=== PATIENT | female | born 2000 | race Two or more races ===

== ENCOUNTER 2024-10-01 10:21 | Emergency (ER) | payer OTHER, SELFPAY ==
[2024-10-01 10:28] VITALS: BP 140/91; PULSE 104; TEMP 36.6; O2SAT 100; BMI 21.5
--- NOTE | 2024-10-01 10:44 | ECG_ITS ---
The [facility] Test Date: 2024-10-01 Pat Name: NATALIA DIEGO Department: Room: - Gender: Female Baggage Screener: : 2000 Requested By: [id number] Order Number: [id number] Reading MD: SHIVANI ORELLANA Measurements Intervals [place] Rate: 94 P: 43 OH: 150 QRS: 51 QRSD: 82 T: 61 QT: 336 QTc: 388 Interpretive Statements 1100 Sinus rhythm 9110 normal ECG Compared to ECG 02/11/2020 07:46:28 No significant changes Electronically Signed On 10-07-2024 18:26:45 EST by SHIVANI ORELLANA
--- NOTE | 2024-10-01 10:44 | XR_ITS ---
The [address] [address] Patient Name: NATALIA DIEGO MRN: [id number] date: 2000 Sex: F Assigned Patient Location: ER Current Patient Location: ER Accession/Order Number: [id number] Exam Date: 10/01/2024 10:50 Report Date: 10/01/2024 11:06 At the request of: WILLIE NAILS Procedure: XR chest 1V EXAMINATION: XR chest 1V HISTORY: CP COMPARISON: 08/27/2016 TECHNIQUE: AP portable FINDINGS: LUNGS: No significant pulmonary parenchymal abnormalities. VASCULATURE: No increased pulmonary vasculature. PLEURA: No pneumothorax, effusion, or pleural thickening. CARDIAC: No cardiomegaly or cardiac silhouette abnormality. MEDIASTINUM: No visible mass or adenopathy. BONES: No fracture or visible bone lesion. OTHER: Negative. XR/XR chest 1V IMPRESSION: No acute cardiopulmonary process Electronically authenticated by: BLUE BUCIO Date: 10/01/2024 11:06
--- NOTE | 2024-10-01 10:44 | ED_ITS ---
HPI - Chest Pain General Chief Complaint: Chest Pain Stated Complaint: CHEST PAINS Time Seen by Provider: 10/01/24 10:40 Source: patient Mode of arrival: walk-in Limitations: no limitations History of Present Illness HPI narrative: 24-year-old female presents for chest pain. It started about 50 minutes ago while she was driving her car. Nothing stressful occurred and there was no injury. It is in the middle and left part of her chest and it has been continuous. She does not have palpitations. She has been on Coreg for about 3 months because of tachycardia and she states they are going to be switching her to a different medication. Related Data Home Medications ?Medication ?Instructions ?Recorded ?Confirmed carvedilol 3.125 mg tablet 3.125 mg PO BID 10/01/24 10/01/24 norgestimate 0.25 mg-ethinyl 1 tab PO DAILY 10/01/24 10/01/24 estradiol 35 mcg tablet (Sprintec (28)) Allergies Allergy/AdvReac Type Severity Reaction Status Date / Time No Known Drug Allergies Allergy Verified 10/01/24 10:32 Review of Systems ROS Narrative A ten point review of systems is negative except as noted above. PFSH PFSH Social History Little interest or pleasure in doing things: not at all Feeling down, depressed, or hopeless: not at all Exam Narrative Exam Narrative: Nurses note and vital signs reviewed and patient is not hypoxic. General: The patient appears well and in no apparent distress. Patient is resting comfortably on cart. Skin: Warm, dry, no pallor noted. There is no rash noted. Head: Normocephalic, atraumatic Eye: Normal conjunctiva, no drainage Ears, Nose, Mouth, and Throat: oral mucosa is moist. Nares patent. Cardiovascular: Regular Rate and Rhythm, minimally tachycardic Respiratory: Patient is in no distress, no accessory muscle use, lungs are clear to auscultation, no wheezing, rales or rhonchi Back: non-tender GI: Soft and nontender Musculoskeletal: The patient has no evidence of calf tenderness, no pitting edema, symmetrical pulses noted bilaterally Neurological: A&O, normal speech Psychiatric: Cooperative, mildly tearful Constitutional Vital Signs, click to edit/add: Last Vital Signs Temp 97.8 F 10/01/24 10:28 Pulse 104 H 10/01/24 10:28 Resp 20 10/01/24 10:28 BP 140/91 10/01/24 10:28 Pulse Ox 100 10/01/24 10:28 O2 Del Method Room Air 10/01/24 10:28 Course Vital Signs Vital signs: Vital Signs Temperature 97.8 F 10/01/24 10:28 Pulse Rate 104 H 10/01/24 10:28 Respiratory Rate 10/01/24 10:28 Blood Pressure 140/91 10/01/24 10:28 Pulse Oximetry 100 10/01/24 10:28 Oxygen Delivery Method Room Air 10/01/24 10:28 Temperature 97.8 F 10/01/24 10:28 Pulse Rate 104 H 10/01/24 10:28 Respiratory Rate 10/01/24 10:28 Blood Pressure 140/91 10/01/24 10:28 Pulse Oximetry 10/01/24 10:28 Oxygen Delivery Method Room Air 10/01/24 10:28 MDM - Chest Pain MDM Narrative Medical decision making narrative: Her workup is negative except for finding in her liver. That finding was discussed with her and she is going to follow-up with her PCP for further outpatient nonemergent testing. The possibility that it is a hemangioma was discussed with the patient. No evidence of heart disease or pulmonary embolism. Treatment diagnosis and follow-up were discussed with the patient. Differential Diagnosis Differential diagnosis: Likely pneumothorax, st elevation myocardial infarction, costochondritis, chest pain and other (Pulmonary embolism) Lab Data Attestation: I reviewed the patient's lab results. Labs: Lab Results 10/01/24 Range/Units 10:45 WBC 7.8 (4.0-11.0) 10^3/uL RBC 4.26 (4.20-5.40) 10^6/uL Hgb 13.1 (12.0-16.0) g/dL Hct 39.5 (36.0-48.0) % MCV 92.7 (81.0-99.0) fL MCH 30.8 (26.7-34.0) pg MCHC 33.2 (29.9-35.2) g/dL RDW 11.7 (11.0-15.0) % Plt Count 289 (150-450) 10^3/uL MPV 9.5 (9.5-13.5) fL Neut % (Auto) 45.2 (43.0-75.0) % Lymph % (Auto) 42.1 (20.5-60.0) % [place] % (Auto) 9.5 (1.7-12.0) % Eos % (Auto) 2.2 (0.9-7.0) % Baso % (Auto) 0.9 (0.2-2.0) % Neut # (Auto) 3.5 (1.4-6.5) 10^3/uL Lymph # (Auto) 3.3 (1.2-3.8) 10^3/uL [place] # (Auto) 0.7 (0.3-0.8) 10^3/uL Eos # (Auto) 0.2 (0.0-0.7) 10^3/uL Baso # (Auto) 0.1 (0.0-0.1) 10^3/uL Abs Immat Gran (auto) 0.01 (0.00-0.03) 10^3/uL Imm/Tot Granulo (auto) 0.1 (0.0-0.5) % D-Dimer 0.95 H* (<=0.59) mg/L FEU Sodium 137 (136-145) mmol/L Potassium 3.5 (3.5-5.1) mmol/L Chloride 103 (98-107) mmol/L Carbon Dioxide 25.5 (21.0-32.0) mmol/L Anion Gap 12.0 BUN 16.0 (7.0-18.0) mg/dL Creatinine 0.83 (0.55-1.02) mg/dL Est GFR ( Amer) >60 (>=60 mL/min/1.73m^2) Est GFR (Non-Af Amer) >60 (>=60 mL/min/1.73m^2) BUN/Creatinine Ratio 19.3 Glucose 97 (74-106) mg/dL Calcium 9.0 (8.5-10.1) mg/dL Troponin I High Sens <4.0 L (4.0-51.3) pg/mL Imaging Data Chest x-ray: Radiologist's impression: ITS Impressions Chest X-Ray 10/01/24 10:44 IMPRESSION: No acute cardiopulmonary process Electronically authenticated by: BLUE BUCIO Date: 10/01/2024 11:06 Chest CTA 10/01/24 11:29 IMPRESSION: No central pulmonary thromboembolic disease Partially visualized enhancing mass in the right hepatic lobe. Nonemergent Multiphasic CT or MRI through the liver is recommended for further characterization Electronically authenticated by: BLUE BUCIO Date: 10/01/2024 12:12 ECG Data Attestation: I personally reviewed and interpreted this ECG as follows: (EKG on my interpretation shows normal sinus rhythm with rate of 94 no acute change.) Heart Score History: Slightly/Non-Suspicious ECG: Normal Age: <45 years Risk Factors: No Risk Factors Troponin: <Normal Limit Total Heart Score Recommendations & Risks:: 0 Discharge Plan Discharge Chief Complaint: Chest Pain Clinical Impression: Chest pain Patient Disposition: Home, Self-Care Time of Disposition Decision: 12:20 Condition: Good Mode of Transportation: Private Vehicle Prescriptions / Home Meds: No Action carvedilol 3.125 mg tablet 3.125 mg PO BID norgestimate-ethinyl estradiol [Sprintec (28)] 0.25-35 mg-mcg tablet 1 tab PO DAILY Print Language: Cook Islander Instructions: Chest Pain (ED) Additional Instructions: Follow-up with your PCP for further outpatient evaluation of liver lesion. Referrals: Physician,Non-Staff, MD [Primary Care Provider] - 1 week
[2024-10-01 10:57] VITALS: PULSE 90
[2024-10-01 11:02] LABS: Basophils Absolute Auto 0.1 10^3/uL (0.0-0.1); Basophils Percent Auto 0.9 % (0.2-2.0); Eosinophils Absolute Auto 0.2 10^3/uL (0.0-0.7); Eosinophils Percent Auto 2.2 % (0.9-7.0); Hematocrit 39.5 % (36.0-48.0); Hemoglobin 13.1 g/dL (12.0-16.0); Immature Granulocytes Abs Auto 0.01 10^3/uL (0.00-0.03); Immature Granulocytes Pct Auto 0.1 % (0.0-0.5); Lymphocytes Absolute Auto 3.3 10^3/uL (1.2-3.8); Lymphocytes Percent Auto 42.1 % (20.5-60.0); Mean Corpuscular HGB Conc 33.2 g/dL (29.9-35.2); Mean Corpuscular Hemoglobin 30.8 pg (26.7-34.0); Mean Corpuscular Volume 92.7 fL (81.0-99.0); Mean Platelet Volume 9.5 fL (9.5-13.5); Monocytes Absolute Auto 0.7 10^3/uL (0.3-0.8); Monocytes Percent Auto 9.5 % (1.7-12.0); Neutrophils Absolute Auto 3.5 10^3/uL (1.4-6.5); Neutrophils Percent Auto 45.2 % (43.0-75.0); Platelet Count 289 10^3/uL (150-450); Red Blood Count 4.26 10^6/uL (4.20-5.40); Red Cell Distribution Width 11.7 % (11.0-15.0); White Blood Count 7.8 10^3/uL (4.0-11.0)
--- NOTE | 2024-10-01 11:09 | PC.NURSE ---
pt had calllight on at this time, upon entry to room, pt found to be bleeding from R nares. pt states frequent nose bleeds, tissues provided and pt holding pressure. pt denies pain with nose. pt instructed to hold pressure for approx 15 min, Dr. Wallace made aware.
[2024-10-01 11:19] LABS: BUN Creatinine Ratio 19.3; Carbon Dioxide 25.5 mmol/L (21.0-32.0); Chloride 103 mmol/L (98-107); Estimated GFR (African America >60 (>=60 mL/min/1.73m^2); Estimated GFR (Non-African Ame >60 (>=60 mL/min/1.73m^2); Glucose 97 mg/dL (74-106); Potassium 3.5 mmol/L (3.5-5.1); Sodium 137 mmol/L (136-145); Troponin I High Sensitivity <4.0 pg/mL (4.0-51.3)
[2024-10-01 11:26] LABS: D Dimer 0.95 mg/L FEU (<=0.59)
--- NOTE | 2024-10-01 11:29 | CT_ITS ---
[address] [address] Patient Name: NATALIA DIEGO MRN: [id number] date: 2000 Sex: F Assigned Patient Location: ER Current Patient Location: ER Accession/Order Number: [id number] Exam Date: 10/01/2024 11:43 Report Date: 10/01/2024 12:12 At the request of: WILLIE NAILS Procedure: CT angio chest EXAMINATION: CT angio chest HISTORY: Chest pain, elevated dimer COMPARISON: Plain x-ray same day TECHNIQUE: Multi-planar CT images were created with IV contrast. Axial, Coronal, and Sagittal images. Dose reduction techniques were achieved by using automated exposure control and/or adjustment of mA and/or kV according to patient size and/or use of iterative reconstruction technique. FINDINGS: LUNGS: No visible pulmonary disease. PLEURA: No mass, effusion, or pneumothorax. VASCULATURE: Normal postcontrast opacification of central pulmonary arterial tree with no filling defects JARROD: No mass or adenopathy. MEDIASTINUM: Soft tissue anterior mediastinum likely residual thymic tissue CARDIAC: No enlargement or pericardial effusion Coronary arteries: Absent calcifications AORTA: No aortic aneurysm or dissection CHEST WALL: No mass or axillary adenopathy. BONES: No bone lesion or fracture. LIMITED ABDOMEN: Partially visualized 2.8 cm enhancing lesion/mass in the right hepatic lobe axial image 86 OTHER: Negative. CT/CT angio chest IMPRESSION: No central pulmonary thromboembolic disease Partially visualized enhancing mass in the right hepatic lobe. Nonemergent Multiphasic CT or MRI through the liver is recommended for further characterization Electronically authenticated by: BLUE BUCIO Date: 10/01/2024 12:12
--- NOTE | 2024-10-01 11:35 | PC.NURSE ---
pt ambulatory to and from restroom at this time independently. denies needs of assistance. aware of pending CTA, denies further needs. pt remains on surveillance monitor.
[2024-10-01 12:36] VITALS: BP 125/77; PULSE 89; O2SAT 98
== END 2024-10-01 12:38 | disposition home or self-care (01) ==
PROVIDERS: Emergency Provider Emergency Medicine
DX: R07.9 Chest pain, unspecified (principal); Z79.899 Other long term (current) drug therapy; R00.0 Tachycardia, unspecified; R16.0 Hepatomegaly, not elsewhere classified
CPT/HCPCS: 36415; 71045; 71275; 80048; 84484; 85025; 85378; 93005; 99285; Q9967